=== PATIENT | female | born 1985 | race Caucasian/White ===

== ENCOUNTER 2016-11-26 18:34 | Emergency (ER) | payer BC ==
[~2016-11-26] VITALS: Ht 154.9 cm; Wt 80.8 kg
[2016-11-26 19:51] LABS: BASOPHIL % 0.5 % (0-2); PLATELET COUNT 255 x10^3mcL (130-400)
[2016-11-26 19:56] LABS: RED CELL DISTRIBUTION WIDTH 15.9 % (11.5-14.5)
[2016-11-26 21:36] LABS: microscopic required? YES; urine erythrocyte 2+ (NEGATIVE)
[2016-11-26 23:46] VITALS: BP 124/80
== END 2016-11-26 23:46 | disposition home or self-care (01) ==
LOC: ED 18:34
PROVIDERS: Emergency Medicine
DX: O20.0 Threatened abortion (principal); Z3A.01 Less than 8 weeks gestation of pregnancy; O23.41 Unspecified infection of urinary tract in pregnancy, first trimester; O99.011 Anemia complicating pregnancy, first trimester; D64.9 Anemia, unspecified; O34.81 Maternal care for other abnormalities of pelvic organs, first trimester; N83.201 Unspecified ovarian cyst, right side; D36.9 Benign neoplasm, unspecified site
CPT/HCPCS: J0696; J1460